=== PATIENT | male | born 1950 | race Caucasian/White ===

== ENCOUNTER 2024-03-19 13:28 | Inpatient (IN) | payer OTHER ==
[~2024-03-19 13:28] MED LIST: Iopamidol-370 76% 500 ML MDV (1 ML CHARGE) ONE
[2024-03-19 14:53] LABS: #Basophils 0.03 10x3/uL (0.0-0.2); %Basophils 0.3 % (0.0-1.0); %Eosinophils 0.9 % (0.0-10.0); %Lymphocytes 10.8 % (21.0-51.0); %Monocytes 5.9 % (0.0-10.0); Hematocrit 37.1 % (42.0-52.0); Mean Corpuscular Hemoglobin 30.2 pg (27.0-31.0); Mean Corpuscular Volume 86.3 fL (78.0-98.0); Mean Platelet Volume 10.1 fL (7.4-10.4); Platelet Count 158 10x3/uL (130-400)
[2024-03-19 15:16] LABS: ALT (SGPT) 11 U/L (8-55); AST (SGOT) 19 U/L (5-34); Alkaline Phosphatase 65 U/L (40-110); Anion Gap 13 mmol/L (10-20); BUN (Urea Nitrogen) 11 mg/dL (8.4-25.7); Bilirubin, Total 0.6 mg/dL (0.2-1.2); Calc. Creatinine Clearance 0 mL/min (70-130); Calcium 8.6 mg/dL (7.8-10.44); Carbon Dioxide 17 mmol/L (23-31); Chloride 98 mmol/L (98-107); Estimated GFR 90; Globulin 3.2 g/dL (2.4-3.5); Glucose 91 mg/dL (83-110); Lipase 19 U/L (8-78); Potassium 4.2 mmol/L (3.5-5.1); Protein, Total 7.2 g/dL (5.8-8.1); Sodium 124 mmol/L (136-145)
[2024-03-19 15:21] LABS: Troponin I 0.016 ng/mL (< 0.028)
[2024-03-19] MEDS ORDERED: Morphine 4 MG/ML VIAL ONE (18:04)
[2024-03-19] MEDS ORDERED: Calcium Carbonate 500 MG ChewTAB PO PRN (20:49)
[2024-03-19] MEDS ORDERED: Morphine 2 MG/ML VIAL SLOW IVP PRN (21:25)
[2024-03-19] MEDS: Sodium Chloride 0.9% 1,000 ML IV SCH (23:13)
[2024-03-20 00:10] VITALS: BMI 31.3
[2024-03-20 00:59] LABS: Troponin I 0.012 ng/mL (< 0.028)
[2024-03-20 04:39] LABS: Troponin I 0.013 ng/mL (< 0.028)
[2024-03-20 06:48] LABS: #Basophils 0.03 10x3/uL (0.0-0.2); %Basophils 0.4 % (0.0-1.0); %Eosinophils 1.2 % (0.0-10.0); %Lymphocytes 11.3 % (21.0-51.0); %Monocytes 8.7 % (0.0-10.0); %Neutrophils 77.2 % (42.0-75.0); Hematocrit 40.4 % (42.0-52.0); Hemoglobin 13.5 g/dL (14.0-18.0); Mean Corpuscular HGB CONC 33.4 g/dL (32.0-36.0); Mean Corpuscular Hemoglobin 29.7 pg (27.0-31.0); Mean Corpuscular Volume 88.8 fL (78.0-98.0); Mean Platelet Volume 10.3 fL (7.4-10.4); Platelet Count 143 10x3/uL (130-400); RBC Distribution Width 14.2 % (11.5-14.5); Red Blood Cell (RBC) Count 4.55 mill/uL (4.70-6.10)
[2024-03-20 07:05] LABS: ALT (SGPT) 13 U/L (8-55); AST (SGOT) 19 U/L (5-34); Albumin 3.7 g/dL (3.4-4.8); Alkaline Phosphatase 61 U/L (40-110); Anion Gap 13 mmol/L (10-20); BUN (Urea Nitrogen) 13 mg/dL (8.4-25.7); Bilirubin, Total 0.4 mg/dL (0.2-1.2); Calc. Creatinine Clearance 113 mL/min (70-130); Calcium 8.2 mg/dL (7.8-10.44); Carbon Dioxide 17 mmol/L (23-31); Chloride 103 mmol/L (98-107); Cholesterol 156 mg/dl (< 200 Desired); Estimated GFR 92; Glucose 103 mg/dL (83-110); HDL Cholesterol 39 mg/dL (>60 Neg Risk); LDL Cholesterol, Calculated 91 mg/dL; Protein, Total 6.7 g/dL (5.8-8.1); Sodium 129 mmol/L (136-145); Triglycerides 130 mg/dL (Less than 150)
[2024-03-20 08:00] LABS: Hemoglobin A1c 5.8 % (4.0-6.0)
[2024-03-20] MEDS: Enoxaparin 40 MG (0.4 mL) SYRINGE SC SCH (08:18)
[2024-03-20] MEDS: Acetaminophen 325 MG TAB PO PRN (08:18)
[2024-03-20] MEDS: Ondansetron PF 4 MG/2 ML Vial IVP PRN (08:18)
[2024-03-20] MEDS: Aspirin Chewable 81 MG TAB PO SCH (08:20)
[2024-03-20] MEDS ORDERED: Regadenoson 0.4 MG/5 ML SYRINGE ONE (11:56)
[2024-03-20] MEDS ORDERED: Ipratropium/Albuterol 3 ML NEB NEB PRN (16:06)
[2024-03-20] MEDS: Mometasone 100 MCG/Formoterol 5 MCG 120 PUFF INHALER INH SCH (18:37)
[2024-03-20] MEDS: carBAMazepine 200 MG TAB PO SCH (20:24)
[2024-03-20] MEDS: Furosemide 40 MG TAB PO SCH (20:25)
[2024-03-20] MEDS: Terazosin HCl 1 MG CAP PO SCH (20:25)
[2024-03-21] MEDS: Atorvastatin Calcium 40 MG TAB PO SCH (09:24)
[2024-03-21] MEDS: Aspirin 81 mg Enteric Coated Tablet PO SCH (09:24)
[2024-03-21] MEDS: Carvedilol 3.125 MG TAB PO SCH (09:25)
[2024-03-21] MEDS: Famotidine 20 MG TAB PO SCH (09:26)
[2024-03-21] MEDS: Lisinopril 20 MG TAB PO SCH (09:26)
[2024-03-21] MEDS: Clopidogrel Bisulfate 75 MG TAB PO SCH (09:26)
[2024-03-21] MEDS: Sertraline 100 MG TAB PO SCH (09:27)
[2024-03-22] MEDS: Sodium Chloride 0.9% 1,000 ML IV SCH (05:54)
[2024-03-22] MEDS ORDERED: Heparin 10,000 UNITS/ 10 ML VIAL ONE (08:38)
[2024-03-22] MEDS ORDERED: Nitroglycerin 50 MG/250 ML BOT 250 ML ONE (08:39)
[2024-03-22] MEDS ORDERED: Communication Order-Pharmacy FS SCH (09:45)
[2024-03-22] MEDS: Senokot S 8.6-50 MG TAB PO PRN (16:50)
[2024-03-23 05:24] LABS: Anion Gap 15 mmol/L (10-20); BUN (Urea Nitrogen) 17 mg/dL (8.4-25.7); Calc. Creatinine Clearance 108 mL/min (70-130); Calcium 8.7 mg/dL (7.8-10.44); Carbon Dioxide 19 mmol/L (23-31); Chloride 104 mmol/L (98-107); Estimated GFR 91; Glucose 91 mg/dL (83-110); Potassium 4.5 mmol/L (3.5-5.1); Sodium 133 mmol/L (136-145)
[2024-03-23] MEDS: Sodium Chloride 0.9% 1,000 ML IV SCH ×2 (06:16→11:10)
[2024-03-23] MEDS ORDERED: fentaNYL 50 mcg/mL 1 mL Vial ONE (08:53)
[2024-03-23] MEDS ORDERED: Heparin 10,000 UNITS/ 10 ML VIAL ONE (08:54)
[2024-03-23] MEDS ORDERED: Midazolam HCl 2 mg/2 ml Vial ONE (08:54)
[2024-03-23] MEDS ORDERED: Nitroglycerin 50 MG/250 ML BOT 0 ML ONE (08:54)
[2024-03-23] MEDS ORDERED: Atropine Sulfate 1 mg/10 ml Syringe ONE (09:41)
[2024-03-23] MEDS ORDERED: Protamine Sulfate 50 MG/5 ML VIAL ONE (10:19)
[2024-03-23] MEDS ORDERED: Nitroglycerin 0.4 MG TAB (25 Tab Bottle) SL PRN (10:41)
[2024-03-23] MEDS ORDERED: Sodium Chloride 0.9% 200 ML IV PRN (10:41)
[2024-03-23] MEDS ORDERED: Acetaminophen/Codeine 30-300mg Tablet PO PRN ×2 (10:41)
[2024-03-23 17:34] VITALS: BP 143/97; TEMP 97.2
== END 2024-03-23 22:33 | DRG 287 ==
LOC: EEVIPCON 13:28 → SUATTDRO 13:28 → ERS 13:28 → ERHOLD 20:04 → 2SW 23:01 → OBSVTOIN 03-21 15:09
PROVIDERS: ADMIT Internal Medicine; ATTEND Internal Medicine
PROC: 4A023N7 Measurement of Cardiac Sampling and Pressure, Left Heart, Percutaneous Approach (ICD-10-PCS; principal; 2024-03-23)
PROC: B2111ZZ Fluoroscopy of Multiple Coronary Arteries using Low Osmolar Contrast (ICD-10-PCS; 2024-03-23)
PROC: B2181ZZ Fluoroscopy of Left Internal Mammary Bypass Graft using Low Osmolar Contrast (ICD-10-PCS; 2024-03-23)
DX: R07.89 Other chest pain (principal); I51.0 Cardiac septal defect, acquired; E87.1 Hypo-osmolality and hyponatremia; I48.19 Other persistent atrial fibrillation; I35.8 Other nonrheumatic aortic valve disorders; K74.60 Unspecified cirrhosis of liver; I25.10 Atherosclerotic heart disease of native coronary artery without angina pectoris; J44.9 Chronic obstructive pulmonary disease, unspecified; F32.A Depression, unspecified; I11.0 Hypertensive heart disease with heart failure; R10.9 Unspecified abdominal pain; E78.00 Pure hypercholesterolemia, unspecified; I50.9 Heart failure, unspecified; Z95.1 Presence of aortocoronary bypass graft; Z95.5 Presence of coronary angioplasty implant and graft; Z79.02 Long term (current) use of antithrombotics/antiplatelets; Z79.82 Long term (current) use of aspirin; Z79.899 Other long term (current) drug therapy; Z87.891 Personal history of nicotine dependence; I25.2 Old myocardial infarction
CPT/HCPCS: 36415; 36416; 71045; 71275; 74174; 78452; 80048; 80053; 80061; 83036; 83605; 83690; 83735; 83880; 84484; 85025; 85347; 85379; 93005; 93017; 93306; 94664; 94760; 96374; A9502; C1769; J0461; J1644; J1650; J2250; J2272; J2405; J2720; J2785; J3010; J7030; Q9967

== ENCOUNTER 2024-03-31 20:47 | Observation (INO) | payer OTHER ==
[2024-04-01 00:49] VITALS: BMI 3081.5
[2024-04-01] MEDS ORDERED: Ipratropium/Albuterol 3 ML NEB NEB PRN (01:26)
[2024-04-01] MEDS ORDERED: Calcium Carbonate 500 MG ChewTAB PO PRN (01:26)
[2024-04-01] MEDS ORDERED: Nitroglycerin 0.4 MG TAB (25 Tab Bottle) SL SCH (01:30)
[2024-04-01] MEDS ORDERED: Acetaminophen 325 MG TAB PO PRN (01:35)
[2024-04-01] MEDS ORDERED: Nitroglycerin 0.4 MG TAB (25 Tab Bottle) SL PRN (02:00)
[2024-04-01] MEDS: Pantoprazole 40 MG VIAL IVP SCH (04:29)
[2024-04-01 05:41] LABS: #Basophils 0.03 10x3/uL (0.0-0.2); %Basophils 0.6 % (0.0-1.0); %Lymphocytes 14.3 % (21.0-51.0); %Monocytes 11.1 % (0.0-10.0); %Neutrophils 70.6 % (42.0-75.0); Hematocrit 34.4 % (42.0-52.0); Hemoglobin 12.1 g/dL (14.0-18.0); Mean Corpuscular HGB CONC 35.2 g/dL (32.0-36.0); Mean Corpuscular Hemoglobin 30.1 pg (27.0-31.0); Mean Corpuscular Volume 85.6 fL (78.0-98.0); Platelet Count 152 10x3/uL (130-400); RBC Distribution Width 14.5 % (11.5-14.5); Red Blood Cell (RBC) Count 4.02 mill/uL (4.70-6.10)
[2024-04-01 06:42] LABS: Anion Gap 12 mmol/L (10-20); BUN (Urea Nitrogen) 8 mg/dL (8.4-25.7); Calc. Creatinine Clearance 117 mL/min (70-130); Calcium 8.3 mg/dL (7.8-10.44); Carbon Dioxide 19 mmol/L (23-31); Chloride 98 mmol/L (98-107); Estimated GFR 93; Glucose 96 mg/dL (83-110); Potassium 3.6 mmol/L (3.5-5.1); Sodium 125 mmol/L (136-145)
[2024-04-01 06:43] LABS: Troponin I 0.021 ng/mL (< 0.028)
[2024-04-01] MEDS: Mometasone 100 MCG/Formoterol 5 MCG 120 PUFF INHALER INH SCH (07:18)
[2024-04-01 08:10] LABS: Troponin I 0.024 ng/mL (< 0.028)
[2024-04-01] MEDS ORDERED: Famotidine 20 MG TAB PO SCH (09:00)
[2024-04-01] MEDS: Lisinopril 20 MG TAB PO SCH (09:25)
[2024-04-01] MEDS: Atorvastatin Calcium 40 MG TAB PO SCH (09:25)
[2024-04-01] MEDS: Heparin 5,000 UNITS/ML VIAL SC SCH (09:26)
[2024-04-01] MEDS: carBAMazepine 200 MG TAB PO SCH (09:26)
[2024-04-01] MEDS: Clopidogrel Bisulfate 75 MG TAB PO SCH (09:26)
[2024-04-01] MEDS: Sertraline 100 MG TAB PO SCH (09:26)
[2024-04-01] MEDS: Aripiprazole 10 MG TAB PO SCH (09:26)
[2024-04-01] MEDS: Furosemide 40 MG TAB PO SCH (09:26)
[2024-04-01] MEDS: Aspirin 81 mg Enteric Coated Tablet PO SCH (09:26)
[2024-04-01] MEDS: Carvedilol 3.125 MG TAB PO SCH (09:36)
[2024-04-01] MEDS: traMADol HCl 50 MG TAB PO PRN (14:27)
[2024-04-01] MEDS: Pantoprazole DR 40 MG TAB PO SCH (20:30)
[2024-04-01] MEDS: Terazosin HCl 1 MG CAP PO SCH (20:30)
[2024-04-01] MEDS: Carvedilol 6.25 MG TAB PO SCH (20:30)
[2024-04-02 09:13] LABS: #Basophils 0.03 10x3/uL (0.0-0.2); %Basophils 0.6 % (0.0-1.0); %Eosinophils 2.1 % (0.0-10.0); %Lymphocytes 11.5 % (21.0-51.0); %Monocytes 11.3 % (0.0-10.0); %Neutrophils 74.1 % (42.0-75.0); Hematocrit 35.4 % (42.0-52.0); Hemoglobin 12.5 g/dL (14.0-18.0); Mean Corpuscular HGB CONC 35.3 g/dL (32.0-36.0); Mean Corpuscular Hemoglobin 30.9 pg (27.0-31.0); Mean Corpuscular Volume 87.6 fL (78.0-98.0); Mean Platelet Volume 10.6 fL (7.4-10.4); Platelet Count 150 10x3/uL (130-400); RBC Distribution Width 14.5 % (11.5-14.5); Red Blood Cell (RBC) Count 4.04 mill/uL (4.70-6.10)
[2024-04-02] MEDS ORDERED: Iopamidol 370 76% 100 ML VIAL ONE (09:43)
[2024-04-02 09:44] LABS: ALT (SGPT) 12 U/L (8-55); AST (SGOT) 14 U/L (5-34); Albumin 3.5 g/dL (3.4-4.8); Alkaline Phosphatase 64 U/L (40-110); Anion Gap 14 mmol/L (10-20); BUN (Urea Nitrogen) 10 mg/dL (8.4-25.7); Bilirubin, Total 0.4 mg/dL (0.2-1.2); Calc. Creatinine Clearance 102 mL/min (70-130); Calcium 8.7 mg/dL (7.8-10.44); Carbon Dioxide 26 mmol/L (23-31); Chloride 99 mmol/L (98-107); Estimated GFR 84; Globulin 2.7 g/dL (2.4-3.5); Glucose 100 mg/dL (83-110); Protein, Total 6.2 g/dL (5.8-8.1); Sodium 135 mmol/L (136-145)
[2024-04-02] MEDS: Ondansetron PF 4 MG/2 ML Vial IVP PRN (14:24)
[2024-04-02] MEDS: Tamsulosin HCl 0.4 MG CAP PO SCH (14:25)
[2024-04-02] MEDS: Furosemide 40 MG (4 mL) VIAL SLOW IVP SCH (14:25)
[2024-04-02] MEDS: Polyethylene Glycol 3350 17 GM Packet PO SCH (14:25)
[2024-04-03 11:19] VITALS: BP 112/59; TEMP 97.6
== END 2024-04-03 13:30 ==
LOC: 2NO 04-01 00:25 → EEVIPCON 04-01 00:25
PROVIDERS: ADMIT Internal Medicine; ATTEND Hospitalist
DX: R07.89 Other chest pain (principal); I10 Essential (primary) hypertension; R10.9 Unspecified abdominal pain; I48.19 Other persistent atrial fibrillation; I11.0 Hypertensive heart disease with heart failure; I50.42 Chronic combined systolic (congestive) and diastolic (congestive) heart failure; I25.5 Ischemic cardiomyopathy; I42.0 Dilated cardiomyopathy; I25.10 Atherosclerotic heart disease of native coronary artery without angina pectoris; E78.5 Hyperlipidemia, unspecified; I48.91 Unspecified atrial fibrillation; K74.60 Unspecified cirrhosis of liver; E87.1 Hypo-osmolality and hyponatremia; K21.9 Gastro-esophageal reflux disease without esophagitis; N40.0 Benign prostatic hyperplasia without lower urinary tract symptoms; J44.9 Chronic obstructive pulmonary disease, unspecified; Z95.1 Presence of aortocoronary bypass graft; Z87.891 Personal history of nicotine dependence; Z79.51 Long term (current) use of inhaled steroids; Z79.82 Long term (current) use of aspirin; Z79.899 Other long term (current) drug therapy
CPT/HCPCS: 36415; 71045; 74175; 80048; 80053; 83690; 83880; 84484; 85025; 93005; 94664; 94760; 96372; 96374; 96375; 96376; G0378; J1644; J1940; J2272; J2405; J2470; Q9967

== ENCOUNTER 2024-04-08 08:55 | Inpatient (IN) | payer OTHER ==
[2024-04-08 09:45] LABS: #Basophils 0.03 10x3/uL (0.0-0.2); %Basophils 0.5 % (0.0-1.0); %Eosinophils 0.9 % (0.0-10.0); %Lymphocytes 11.1 % (21.0-51.0); %Monocytes 8.7 % (0.0-10.0); %Neutrophils 78.1 % (42.0-75.0); Hematocrit 35.7 % (42.0-52.0); Hemoglobin 12.8 g/dL (14.0-18.0); Mean Corpuscular HGB CONC 35.9 g/dL (32.0-36.0); Mean Corpuscular Hemoglobin 30.5 pg (27.0-31.0); Mean Platelet Volume 10.4 fL (7.4-10.4); Platelet Count 211 10x3/uL (130-400); RBC Distribution Width 14.5 % (11.5-14.5)
[2024-04-08 10:43] LABS: ALT (SGPT) 16 U/L (8-55); AST (SGOT) 25 U/L (5-34); Albumin 3.9 g/dL (3.4-4.8); Alkaline Phosphatase 67 U/L (40-110); Anion Gap 14 mmol/L (10-20); BUN (Urea Nitrogen) 10 mg/dL (8.4-25.7); Bilirubin, Total 0.6 mg/dL (0.2-1.2); Calc. Creatinine Clearance 0 mL/min (70-130); Calcium 8.9 mg/dL (7.8-10.44); Carbon Dioxide 20 mmol/L (23-31); Chloride 87 mmol/L (98-107); Critical Call Chemistry NUR.CO3; Estimated GFR 91; Glucose 112 mg/dL (83-110); Potassium 4.6 mmol/L (3.5-5.1); Protein, Total 6.9 g/dL (5.8-8.1); Sodium 116 mmol/L (136-145)
[2024-04-08] MEDS ORDERED: Ondansetron PF 4 MG/2 ML Vial ONE (12:15)
[2024-04-08 14:25] LABS: Anion Gap 15 mmol/L (10-20); BUN (Urea Nitrogen) 10 mg/dL (8.4-25.7); Calc. Creatinine Clearance 0 mL/min (70-130); Calcium 9.1 mg/dL (7.8-10.44); Carbon Dioxide 24 mmol/L (23-31); Chloride 86 mmol/L (98-107); Estimated GFR 80; Glucose 107 mg/dL (83-110); Potassium 4.5 mmol/L (3.5-5.1); Sodium 120 mmol/L (136-145)
[2024-04-08 16:45] LABS: Anion Gap 15 mmol/L (10-20); BUN (Urea Nitrogen) 10 mg/dL (8.4-25.7); Calc. Creatinine Clearance 108 mL/min (70-130); Calcium 8.6 mg/dL (7.8-10.44); Carbon Dioxide 17 mmol/L (23-31); Chloride 94 mmol/L (98-107); Estimated GFR 91; Glucose 122 mg/dL (83-110); Potassium 4.3 mmol/L (3.5-5.1); Sodium 122 mmol/L (136-145)
[2024-04-08] MEDS ORDERED: Albuterol 2.5 MG (3 mL) NEB NEB PRN (16:48)
[2024-04-08] MEDS: Furosemide 40 MG TAB PO SCH (17:57)
[2024-04-08] MEDS: Sodium Chloride 0.9% 1,000 ML IV SCH (18:31)
[2024-04-08 20:21] LABS: Anion Gap 12 mmol/L (10-20); BUN (Urea Nitrogen) 11 mg/dL (8.4-25.7); Calc. Creatinine Clearance 104 mL/min (70-130); Calcium 8.5 mg/dL (7.8-10.44); Carbon Dioxide 21 mmol/L (23-31); Chloride 92 mmol/L (98-107); Estimated GFR 89; Glucose 89 mg/dL (83-110); Potassium 4.4 mmol/L (3.5-5.1); Sodium 121 mmol/L (136-145)
[2024-04-08] MEDS: Famotidine 20 MG TAB PO SCH (21:01)
[2024-04-08] MEDS: Ondansetron ODT 4 MG TAB PO PRN (21:01)
[2024-04-08] MEDS: carBAMazepine 200 MG TAB PO SCH (21:01)
[2024-04-08] MEDS: Aripiprazole 10 MG TAB PO SCH (21:02)
[2024-04-08] MEDS: Atorvastatin Calcium 40 MG TAB PO SCH (21:02)
[2024-04-09 01:43] LABS: Anion Gap 14 mmol/L (10-20); BUN (Urea Nitrogen) 12 mg/dL (8.4-25.7); Calc. Creatinine Clearance 99 mL/min (70-130); Calcium 8.3 mg/dL (7.8-10.44); Carbon Dioxide 20 mmol/L (23-31); Chloride 96 mmol/L (98-107); Estimated GFR 83; Glucose 94 mg/dL (83-110); Potassium 4.1 mmol/L (3.5-5.1); Sodium 126 mmol/L (136-145)
[2024-04-09 04:26] LABS: Bacteria/HPF None Seen HPF (None Seen); Bilirubin Negative (Negative); Blood, Urine 2+ (Negative); Clarity Clear (Clear); Glucose, Urine (Dipstick) Normal (Negative); Ketone, Urine Negative (Negative); Leukocyte Negative Leu/uL (Negative); Nitrite Negative (Negative); Protein, Urine (Dipstick) Negative (Neg-Trace); RBC/HPF 0-3 HPF (0-3); Squamous Epithelial None Seen HPF (0-3); Urobilinogen Normal mg/dL (Less than 2); WBC/HPF 0-3 HPF (0-3)
[2024-04-09 05:40] LABS: Anion Gap 12 mmol/L (10-20); BUN (Urea Nitrogen) 11 mg/dL (8.4-25.7); Calc. Creatinine Clearance 100 mL/min (70-130); Calcium 8.6 mg/dL (7.8-10.44); Carbon Dioxide 22 mmol/L (23-31); Chloride 96 mmol/L (98-107); Estimated GFR 85; Glucose 108 mg/dL (83-110); Potassium 4.3 mmol/L (3.5-5.1); Sodium 126 mmol/L (136-145)
[2024-04-09 08:41] LABS: Anion Gap 12 mmol/L (10-20); BUN (Urea Nitrogen) 10 mg/dL (8.4-25.7); Calc. Creatinine Clearance 106 mL/min (70-130); Calcium 8.5 mg/dL (7.8-10.44); Carbon Dioxide 23 mmol/L (23-31); Chloride 97 mmol/L (98-107); Estimated GFR 90; Glucose 111 mg/dL (83-110); Potassium 4.3 mmol/L (3.5-5.1); Sodium 128 mmol/L (136-145)
[2024-04-09] MEDS: Lisinopril 20 MG TAB PO SCH (09:01)
[2024-04-09] MEDS: Sertraline 100 MG TAB PO SCH (09:02)
[2024-04-09] MEDS: Clopidogrel Bisulfate 75 MG TAB PO SCH (09:02)
[2024-04-09] MEDS: Enoxaparin 40 MG (0.4 mL) SYRINGE SC SCH (09:02)
[2024-04-09 13:43] LABS: Anion Gap 12 mmol/L (10-20); BUN (Urea Nitrogen) 9 mg/dL (8.4-25.7); Calc. Creatinine Clearance 109 mL/min (70-130); Calcium 8.4 mg/dL (7.8-10.44); Carbon Dioxide 20 mmol/L (23-31); Chloride 97 mmol/L (98-107); Estimated GFR 91; Glucose 122 mg/dL (83-110); Potassium 4.3 mmol/L (3.5-5.1); Sodium 125 mmol/L (136-145)
[2024-04-09 18:13] LABS: Anion Gap 17 mmol/L (10-20); BUN (Urea Nitrogen) 9 mg/dL (8.4-25.7); Calc. Creatinine Clearance 100 mL/min (70-130); Calcium 8.5 mg/dL (7.8-10.44); Carbon Dioxide 18 mmol/L (23-31); Chloride 97 mmol/L (98-107); Estimated GFR 85; Glucose 95 mg/dL (83-110); Potassium 4.5 mmol/L (3.5-5.1); Sodium 127 mmol/L (136-145)
[2024-04-10] MEDS: Promethazine HCl 25 MG in Sodium Chloride 0.9% 50 ML IVPB SCH (00:19)
[2024-04-10] MEDS: Acetaminophen 325 MG TAB PO PRN (00:23)
[2024-04-10 05:33] LABS: Anion Gap 14 mmol/L (10-20); BUN (Urea Nitrogen) 10 mg/dL (8.4-25.7); Calc. Creatinine Clearance 108 mL/min (70-130); Calcium 8.3 mg/dL (7.8-10.44); Carbon Dioxide 18 mmol/L (23-31); Chloride 98 mmol/L (98-107); Estimated GFR 91; Glucose 94 mg/dL (83-110); Sodium 125 mmol/L (136-145)
[2024-04-10] MEDS: Sodium Chloride 1 GM TAB PO SCH (09:42)
[2024-04-10] MEDS: Ondansetron PF 4 MG/2 ML Vial IVP PRN (09:43)
[2024-04-10] MEDS: Senokot S 8.6-50 MG TAB PO SCH (21:20)
[2024-04-11 07:52] LABS: Anion Gap 12 mmol/L (10-20); BUN (Urea Nitrogen) 12 mg/dL (8.4-25.7); Calc. Creatinine Clearance 110 mL/min (70-130); Calcium 8.6 mg/dL (7.8-10.44); Carbon Dioxide 21 mmol/L (23-31); Chloride 98 mmol/L (98-107); Estimated GFR 92; Glucose 96 mg/dL (83-110); Magnesium 2.1 mg/dL (1.6-2.6); Potassium 4.5 mmol/L (3.5-5.1); Sodium 126 mmol/L (136-145)
[2024-04-11] MEDS ORDERED: Ipratropium/Albuterol 3 ML NEB NEB PRN (14:08)
[2024-04-11] MEDS: Sodium Chloride 1 GM TAB PO SCH (16:31)
[2024-04-11] MEDS: Lisinopril 10 MG TAB PO SCH ×2 (16:54→20:29)
[2024-04-11] MEDS: Ipratropium/Albuterol 3 ML NEB NEB SCH (18:03)
[2024-04-11] MEDS: Senokot S 8.6-50 MG TAB PO SCH (20:29)
[2024-04-12 06:42] LABS: Anion Gap 11 mmol/L (10-20); BUN (Urea Nitrogen) 10 mg/dL (8.4-25.7); Calc. Creatinine Clearance 119 mL/min (70-130); Calcium 8.4 mg/dL (7.8-10.44); Carbon Dioxide 21 mmol/L (23-31); Chloride 96 mmol/L (98-107); Estimated GFR 94; Glucose 99 mg/dL (83-110); Potassium 4.2 mmol/L (3.5-5.1); Sodium 124 mmol/L (136-145)
[2024-04-12] MEDS ORDERED: ADMIXTURE FEE CHEMO IV SCH (11:30)
[2024-04-12] MEDS ORDERED: STERILE WATER IV SCH (11:30)
[2024-04-12] MEDS ORDERED: SODIUM CHLORIDE IV SCH (11:30)
[2024-04-12] MEDS: Sodium Chloride 3% 500 ML IVPB SCH (12:36)
[2024-04-12] MEDS: STERILE WATER IV SCH (12:56)
[2024-04-12] MEDS: SODIUM CHLORIDE IV SCH (12:56)
[2024-04-12] MEDS: ADMIXTURE FEE CHEMO IV SCH (12:56)
[2024-04-12] MEDS: Ipratropium/Albuterol 3 ML NEB NEB SCH (13:06)
[2024-04-12 14:09] LABS: Anion Gap 11 mmol/L (10-20); BUN (Urea Nitrogen) 9 mg/dL (8.4-25.7); Calc. Creatinine Clearance 118 mL/min (70-130); Calcium 8.6 mg/dL (7.8-10.44); Carbon Dioxide 20 mmol/L (23-31); Chloride 97 mmol/L (98-107); Estimated GFR 93; Glucose 149 mg/dL (83-110); Sodium 124 mmol/L (136-145)
[2024-04-12 18:28] LABS: Anion Gap 11 mmol/L (10-20); BUN (Urea Nitrogen) 8 mg/dL (8.4-25.7); Calc. Creatinine Clearance 116 mL/min (70-130); Calcium 8.5 mg/dL (7.8-10.44); Carbon Dioxide 20 mmol/L (23-31); Chloride 98 mmol/L (98-107); Estimated GFR 93; Glucose 107 mg/dL (83-110); Potassium 4.1 mmol/L (3.5-5.1); Sodium 125 mmol/L (136-145)
[2024-04-13 05:35] LABS: Anion Gap 11 mmol/L (10-20); BUN (Urea Nitrogen) 8 mg/dL (8.4-25.7); Calc. Creatinine Clearance 128 mL/min (70-130); Calcium 8.4 mg/dL (7.8-10.44); Carbon Dioxide 19 mmol/L (23-31); Chloride 101 mmol/L (98-107); Estimated GFR 96; Glucose 96 mg/dL (83-110); Potassium 4.1 mmol/L (3.5-5.1); Sodium 127 mmol/L (136-145)
[2024-04-13] MEDS: STERILE WATER IV SCH (06:34)
[2024-04-13] MEDS: SODIUM CHLORIDE IV SCH (06:34)
[2024-04-13] MEDS: ADMIXTURE FEE CHEMO IV SCH (06:34)
[2024-04-13] MEDS: GUAIFENESIN SF SOLN 200 MG/10 ML UDCUP PO PRN (12:33)
[2024-04-13] MEDS: Benzocaine/Menthol 1 LOZ LOZ PO PRN (13:52)
[2024-04-13 14:09] LABS: Anion Gap 11 mmol/L (10-20); BUN (Urea Nitrogen) 7 mg/dL (8.4-25.7); Calc. Creatinine Clearance 120 mL/min (70-130); Calcium 8.5 mg/dL (7.8-10.44); Carbon Dioxide 19 mmol/L (23-31); Chloride 100 mmol/L (98-107); Estimated GFR 94; Glucose 128 mg/dL (83-110); Potassium 4.4 mmol/L (3.5-5.1); Sodium 126 mmol/L (136-145)
[2024-04-13 19:23] LABS: Anion Gap 10 mmol/L (10-20); BUN (Urea Nitrogen) 8 mg/dL (8.4-25.7); Calc. Creatinine Clearance 117 mL/min (70-130); Calcium 8.4 mg/dL (7.8-10.44); Carbon Dioxide 20 mmol/L (23-31); Chloride 100 mmol/L (98-107); Estimated GFR 93; Glucose 100 mg/dL (83-110); Potassium 4.2 mmol/L (3.5-5.1); Sodium 126 mmol/L (136-145)
[2024-04-13] MEDS: Ammonium Lactate 12% Lotion 225 GM BOT TOP SCH (21:04)
[2024-04-14] MEDS: ADMIXTURE FEE IVPB SCH (04:12)
[2024-04-14] MEDS: STERILE WATER IVPB SCH (04:12)
[2024-04-14] MEDS: SODIUM CHLORIDE 3% IVPB SCH (04:12)
[2024-04-14 05:16] LABS: #Basophils 0.04 10x3/uL (0.0-0.2); %Basophils 0.6 % (0.0-1.0); %Eosinophils 3.5 % (0.0-10.0); %Lymphocytes 9.9 % (21.0-51.0); %Monocytes 9.5 % (0.0-10.0); %Neutrophils 75.9 % (42.0-75.0); Hematocrit 36.4 % (42.0-52.0); Hemoglobin 12.5 g/dL (14.0-18.0); Mean Corpuscular HGB CONC 34.3 g/dL (32.0-36.0); Mean Corpuscular Hemoglobin 30.3 pg (27.0-31.0); Mean Corpuscular Volume 88.1 fL (78.0-98.0); Mean Platelet Volume 10.8 fL (7.4-10.4); Platelet Count 190 10x3/uL (130-400); RBC Distribution Width 14.7 % (11.5-14.5); Red Blood Cell (RBC) Count 4.13 mill/uL (4.70-6.10)
[2024-04-14 05:51] LABS: Calcium 8.3 mg/dL (7.8-10.44)
[2024-04-14 06:14] LABS: Anion Gap 14 mmol/L (10-20); BUN (Urea Nitrogen) 8 mg/dL (8.4-25.7); Calc. Creatinine Clearance 126 mL/min (70-130); Carbon Dioxide 16 mmol/L (23-31); Chloride 104 mmol/L (98-107); Estimated GFR 96; Glucose 93 mg/dL (83-110); Potassium 4.5 mmol/L (3.5-5.1); Sodium 129 mmol/L (136-145)
[2024-04-14] MEDS: Lisinopril 20 MG TAB PO SCH (08:32)
[2024-04-14] MEDS: Sodium Bicarbonate Tab 325 MG TAB PO SCH (08:32)
[2024-04-14] MEDS ORDERED: Benzonatate 100 MG CAP PO PRN (11:44)
[2024-04-14] MEDS ORDERED: Sodium Chloride 0.65% Nasal 44 ML BOT EA NARE PRN (11:53)
[2024-04-14] MEDS ORDERED: Non-Formulary Item 1 EACH (Albuterol Sulfate [Albuterol Sulfate Neb] 0.63 MG/3 ML Vial.Ne NEB SCH (13:00)
[2024-04-14] MEDS: Calcium Carbonate 500 MG ChewTAB PO SCH ×2 (13:03→19:56)
[2024-04-14] MEDS: Ipratropium Bromide 2.5 ml Neb NEB SCH (14:52)
[2024-04-14 14:53] VITALS: BMI 30.8
[2024-04-14 15:06] LABS: Influenza A by NAA Not Detected (NotDetected); Influenza B by NAA Not Detected (NotDetected); RSV by NAA Not Detected (NotDetected); SARS-CoV-2 NAA Rapid Test Not Detected (NotDetected)
[2024-04-14] MEDS: Benzonatate 100 MG CAP PO SCH (15:30)
[2024-04-14 17:17] LABS: Anion Gap 12 mmol/L (10-20); BUN (Urea Nitrogen) 7 mg/dL (8.4-25.7); Calc. Creatinine Clearance 123 mL/min (70-130); Calcium 8.9 mg/dL (7.8-10.44); Carbon Dioxide 21 mmol/L (23-31); Chloride 102 mmol/L (98-107); Estimated GFR 95; Glucose 97 mg/dL (83-110); Potassium 4.2 mmol/L (3.5-5.1); Sodium 131 mmol/L (136-145)
[2024-04-14] MEDS: Polyvinyl Alcohol 1.4%/Povidone 0.6% Opth Drops EA EYE SCH (19:58)
[2024-04-14] MEDS: Clotrimazole 1 % Cream 30 GM TUBE TOP SCH (19:58)
[2024-04-14] MEDS: Sodium Chloride 1 GM TAB PO SCH (19:59)
[2024-04-14] MEDS: Pantoprazole DR 40 MG TAB PO SCH (20:00)
[2024-04-15] MEDS ORDERED: ADMIXTURE FEE CHEMO IV SCH (00:15)
[2024-04-15] MEDS ORDERED: SODIUM CHLORIDE IV SCH (00:15)
[2024-04-15] MEDS ORDERED: STERILE WATER IV SCH (00:15)
[2024-04-15] MEDS: hydrALAZINE 25 MG TAB PO PRN (00:20)
[2024-04-15 05:49] VITALS: BMI 30.7
[2024-04-15 06:22] LABS: Anion Gap 11 mmol/L (10-20); BUN (Urea Nitrogen) 7 mg/dL (8.4-25.7); Calc. Creatinine Clearance 118 mL/min (70-130); Calcium 8.7 mg/dL (7.8-10.44); Carbon Dioxide 20 mmol/L (23-31); Chloride 101 mmol/L (98-107); Estimated GFR 94; Glucose 96 mg/dL (83-110); Magnesium 1.8 mg/dL (1.6-2.6); Sodium 128 mmol/L (136-145)
[2024-04-15] MEDS: Aspirin 81 mg Enteric Coated Tablet PO SCH (08:48)
[2024-04-15] MEDS: Tamsulosin HCl 0.4 MG CAP PO SCH (08:48)
[2024-04-15] MEDS: Sodium Chloride 1 GM TAB PO SCH (08:49)
[2024-04-15] MEDS: Amlodipine 5 MG TAB PO SCH (08:49)
[2024-04-15] MEDS: Lisinopril 20 MG TAB PO SCH (08:50)
[2024-04-15] MEDS: Cosyntropin 250 MCG VIAL SLOW IVP SCH (10:02)
[2024-04-15 13:05] LABS: ALT (SGPT) 11 U/L (8-55); AST (SGOT) 15 U/L (5-34); Albumin 3.6 g/dL (3.4-4.8); Alkaline Phosphatase 70 U/L (40-110); Bilirubin, Direct 0.2 mg/dL (0.1-0.3); Bilirubin, Total 0.4 mg/dL (0.2-1.2); Lipase 21 U/L (8-78); Protein, Total 6.6 g/dL (5.8-8.1)
[2024-04-15] MEDS: MENTHOL TOP SCH (14:07)
[2024-04-15] MEDS: Lidocaine 2% Viscous Solution 10 ML, Aluminum & Magnesium Hydroxide 30 ML SSW SCH (14:35)
[2024-04-15 18:39] LABS: Anion Gap 12 mmol/L (10-20); BUN (Urea Nitrogen) 8 mg/dL (8.4-25.7); Calc. Creatinine Clearance 119 mL/min (70-130); Calcium 8.9 mg/dL (7.8-10.44); Carbon Dioxide 20 mmol/L (23-31); Chloride 101 mmol/L (98-107); Estimated GFR 94; Glucose 141 mg/dL (83-110); Potassium 3.8 mmol/L (3.5-5.1); Sodium 129 mmol/L (136-145)
[2024-04-16 06:23] LABS: #Basophils 0.04 10x3/uL (0.0-0.2); %Basophils 0.5 % (0.0-1.0); %Eosinophils 1.5 % (0.0-10.0); %Lymphocytes 9.1 % (21.0-51.0); %Monocytes 7.7 % (0.0-10.0); %Neutrophils 80.6 % (42.0-75.0); Hematocrit 36.6 % (42.0-52.0); Hemoglobin 12.8 g/dL (14.0-18.0); Mean Corpuscular Hemoglobin 30.7 pg (27.0-31.0); Mean Corpuscular Volume 87.8 fL (78.0-98.0); Platelet Count 193 10x3/uL (130-400); RBC Distribution Width 14.4 % (11.5-14.5); Red Blood Cell (RBC) Count 4.17 mill/uL (4.70-6.10)
[2024-04-16 06:26] LABS: ALT (SGPT) 10 U/L (8-55); AST (SGOT) 12 U/L (5-34); Albumin 3.6 g/dL (3.4-4.8); Alkaline Phosphatase 69 U/L (40-110); Bilirubin, Direct 0.2 mg/dL (0.1-0.3); Bilirubin, Total 0.4 mg/dL (0.2-1.2); Protein, Total 6.6 g/dL (5.8-8.1)
[2024-04-16 06:34] LABS: Anion Gap 14 mmol/L (10-20); BUN (Urea Nitrogen) 11 mg/dL (8.4-25.7); Calc. Creatinine Clearance 122 mL/min (70-130); Calcium 8.8 mg/dL (7.8-10.44); Carbon Dioxide 20 mmol/L (23-31); Chloride 101 mmol/L (98-107); Estimated GFR 95; Glucose 105 mg/dL (83-110); Lipase 21 U/L (8-78); Magnesium 1.8 mg/dL (1.6-2.6); Potassium 3.8 mmol/L (3.5-5.1); Sodium 131 mmol/L (136-145)
[2024-04-16] MEDS: Albuterol 2.5 MG (3 mL) NEB NEB PRN (11:30)
[2024-04-16] MEDS: Ipratropium/Albuterol 3 ML NEB NEB PRN (14:57)
[2024-04-17 06:20] LABS: #Basophils 0.06 10x3/uL (0.0-0.2); %Basophils 0.9 % (0.0-1.0); %Eosinophils 1.5 % (0.0-10.0); %Lymphocytes 10.8 % (21.0-51.0); %Monocytes 7.1 % (0.0-10.0); %Neutrophils 79.4 % (42.0-75.0); Hematocrit 38.3 % (42.0-52.0); Hemoglobin 12.5 g/dL (14.0-18.0); Mean Corpuscular HGB CONC 32.6 g/dL (32.0-36.0); Mean Corpuscular Hemoglobin 30.3 pg (27.0-31.0); Mean Corpuscular Volume 92.7 fL (78.0-98.0); Mean Platelet Volume 9.7 fL (7.4-10.4); Platelet Count 172 10x3/uL (130-400); RBC Distribution Width 14.5 % (11.5-14.5); Red Blood Cell (RBC) Count 4.13 mill/uL (4.70-6.10)
[2024-04-17 06:57] LABS: Anion Gap 13 mmol/L (10-20); BUN (Urea Nitrogen) 11 mg/dL (8.4-25.7); Calc. Creatinine Clearance 115 mL/min (70-130); Calcium 8.5 mg/dL (7.8-10.44); Carbon Dioxide 17 mmol/L (23-31); Chloride 104 mmol/L (98-107); Estimated GFR 93; Glucose 101 mg/dL (83-110); Magnesium 1.8 mg/dL (1.6-2.6); Potassium 4.1 mmol/L (3.5-5.1); Sodium 130 mmol/L (136-145)
[2024-04-17 13:30] VITALS: BP 133/73
[2024-04-17] MEDS: Spironolactone 25 MG TAB PO SCH (13:30)
[2024-04-17 13:41] VITALS: TEMP 97.8
[2024-04-18] MEDS ORDERED: Spironolactone 25 MG TAB PO SCH (08:00)
== END 2024-04-17 15:10 | DRG 643 ==
LOC: ERS 08:55 → EEVIPCON 08:55 → 2NO 14:15 → T4-B 04-09 16:28
PROVIDERS: ADMIT Internal Medicine; ATTEND Family Medicine
DX: E22.2 Syndrome of inappropriate secretion of antidiuretic hormone (principal); G93.41 Metabolic encephalopathy; I50.22 Chronic systolic (congestive) heart failure; E87.20 Acidosis, unspecified; R33.9 Retention of urine, unspecified; K74.60 Unspecified cirrhosis of liver; I48.91 Unspecified atrial fibrillation; I11.0 Hypertensive heart disease with heart failure; E78.5 Hyperlipidemia, unspecified; F41.9 Anxiety disorder, unspecified; J44.9 Chronic obstructive pulmonary disease, unspecified; I25.10 Atherosclerotic heart disease of native coronary artery without angina pectoris; N40.0 Benign prostatic hyperplasia without lower urinary tract symptoms; E03.9 Hypothyroidism, unspecified; F32.A Depression, unspecified; Z95.1 Presence of aortocoronary bypass graft; Z95.5 Presence of coronary angioplasty implant and graft; Z79.82 Long term (current) use of aspirin; Z79.899 Other long term (current) drug therapy
CPT/HCPCS: 0241U; 36415; 70450; 71045; 74018; 76705; 80048; 80053; 80076; 80400; 81001; 82533; 83605; 83690; 83735; 83930; 83935; 84443; 84550; 85025; 93005; 93010; 94640; 96374; A4217; J0834; J1650; J2405; J2550; J7030; J7131; J7611; J7620; J7644; Q0162